=== PATIENT | female | born 1995 ===

== ENCOUNTER 2018-09-18 17:07 | Emergency (ER) | payer MEDICAID ==
[~2018-09-18] VITALS: Ht 170.2 cm; Wt 81.0 kg
[2018-09-18 17:12] VITALS: BP 145/83
== END 2018-09-18 19:43 | disposition home or self-care (01) ==
LOC: ER 17:08
DX: F10.129 Alcohol abuse with intoxication, unspecified (principal); Z02.89 Encounter for other administrative examinations; Y90.9 Presence of alcohol in blood, level not specified; V89.0XXA Person injured in unspecified motor-vehicle accident, nontraffic, initial encounter; W22.19XA Striking against or struck by other automobile airbag, initial encounter; Y93.89 Activity, other specified; Y92.488 Other paved roadways as the place of occurrence of the external cause; Y99.8 Other external cause status
CPT/HCPCS: 99283